=== PATIENT | female | born 1930 | race Caucasian/White ===

== ENCOUNTER 2016-06-11 20:18 | Observation (INO) | payer MEDICARE, BC ==
[~2016-06-11] VITALS: Ht 160 cm; Wt 66.6 kg
[~2016-06-11 20:18] MED LIST: ASA FREE160 MG OR; ASPIRIN325 MG PO; COUMADIN4 MG PO; COUMADIN6 MG PO; EQ ASPIRIN325 M1 OR; FISH OIL1000 MG OR; FISH OIL1000 MG PO; FLUOROMETHOL0.1 % OU; FOSAMAX70 MG OR; GABAPENTIN300 MG PO; IMDUR60 MG OR; ISOSORB MONO30 MG OR; LEVOTHYROXIN100 MCG PO; LEVOTHYROXIN125 MCG OR; LISINOPRIL5 MG PO; LOPRESSOR50 M1 PO; LORTAB 5 OR; LORTAB5 OR; LOSARTAN POTASS50 MG PO; METOPROLOL100 M1 OR; MULTI VIT OR; NEURONTIN300 MG OR; NITROLINGUAL SPRAY D SL; OSCAL 500/1 TAB PO; PERCOCET 5/325M1 TAB PO; PLAVIX75 MG PO; PRAVACHOL20 MG OR; PRAVASTATIN20 MG PO; PRILOSEC20 MG/CAP OR; RELAFEN; STOOL SOFTENER100 MG PO; SYNTHROID100 MCG OR; TOPROL XL25 MG OR; VESICARE10 MG OR; VESICARE5 MG OR; VITAMIN D2000 UNIT PO; ZANTAC150 M1 PO; ZETIA10 MG OR; ZETIA10 MG PO
[2016-06-12 03:23] LABS: HEMATOCRIT 37.9 % (37.0-47.0); HEMOGLOBIN 13.3 g/dl (12.0-16.0); IMMATURE GRANULOCYTES 0.2 % (0.0-1.0); MEAN CELL VOLUME 100.3 fL CALC (80.0-100.0); MEAN CORPUSCULAR HGB 35.2 pG CALC (26.0-32.0); MEAN CORPUSCULAR HGB CONC 35.1 g/L CALC (32.0-36.0); NEUT# 7.66 thou/uL (2.00-7.15); RED BLOOD COUNT 3.78 mill/uL (4.20-5.60); RED CELL DISTRI WIDTH 13.2 % (11.5-15.5)
[2016-06-12 03:39] LABS: ALBUMIN 4.7 g/dL (3.2-5.0); ALKALINE PHOSPHATASE 72 u/l (38-126); ANION GAP 16 (6-22 (CALC)); BUN 13 mg/dL (8-23); BUN/CREATININE RATIO 21 (12-20 (CALC)); CALCIUM 9.3 mg/dL (8.4-10.2); CARBON DIOXIDE 27 mmol/l (22-30); CHLORIDE 102 mmol/l (95-108); CREATININE 0.6 mg/dL (0.5-1.0); GFR > 60 ML/MIN (>=60 (CALC)); GFR FOR AFR.AMER. > 60 ML/MIN (>=60 (CALC)); GLUCOSE 106 mg/dL (82-115); POTASSIUM 3.5 mmol/l (3.5-5.1); SGOT/AST 37 u/l (9-36); SGPT/ALT 30 u/l (11-66); SODIUM 141 mmol/l (137-146); TOTAL PROTEIN 8.5 g/dL (6.3-8.2)
[2016-06-12 03:43] LABS: URINE BILIRUBIN - DIPSTICK NEGATIVE (NEGATIVE); URINE BLOOD DIPSTICK TRACE-LYSED (NEGATIVE); URINE CLARITY CLEAR; URINE COLOR YELLOW; URINE GLUCOSE - DIPSTICK NEGATIVE (NEGATIVE); URINE KETONE TRACE mg/dL (NEGATIVE); URINE LEUK ESTERASE NEGATIVE (NEGATIVE); URINE NITRITE - DIPSTICK NEGATIVE (Negative); URINE PROTEIN - DIPSTICK TRACE mg/dL (NEG-TRACE); URINE UROBILINOGEN - DIPSTICK 0.2 E.U./dL (0.2)
[2016-06-12 03:50] LABS: MYOGLOBIN 94 ng/mL (0 - 62)
[2016-06-12 06:17] LABS: INFLUENZA A NONE DETECTED (NONE DETECT); INFLUENZA B NONE DETECTED (NONE DETECT)
[2016-06-12 07:55] VITALS: BP 107/60
[2016-06-12] MEDS ORDERED: PERCOCET 5/325M1 TAB PO (08:13)
[2016-06-12] MEDS ORDERED: IRON325 M1 PO (08:20)
[2016-06-12] MEDS ORDERED: AMLODIPINE2.5 MG PO (08:21)
[2016-06-12 11:35] VITALS: BP 108/48
[2016-06-12 14:24] LABS: PROTHROMBIN TIME 22.7 SECONDS (9.0-12.5)
[2016-06-12 15:10] VITALS: BP 125/62
[2016-06-12 19:10] VITALS: BP 154/78
[2016-06-12 23:31] VITALS: BP 127/55
[2016-06-13] VITALS (7 sets, daily range): BP systolic 105–138; BP diastolic 54–72
[2016-06-13 05:05] LABS: HEMATOCRIT 36.2 % (37.0-47.0); HEMOGLOBIN 12.6 g/dl (12.0-16.0); IMMATURE GRANULOCYTES 0.2 % (0.0-1.0); MEAN CELL VOLUME 99.7 fL CALC (80.0-100.0); MEAN CORPUSCULAR HGB 34.7 pG CALC (26.0-32.0); MEAN CORPUSCULAR HGB CONC 34.8 g/L CALC (32.0-36.0); NEUT# 4.73 thou/uL (2.00-7.15); RED BLOOD COUNT 3.63 mill/uL (4.20-5.60); RED CELL DISTRI WIDTH 12.8 % (11.5-15.5)
[2016-06-13 05:39] LABS: ANION GAP 16 (6-22 (CALC)); BUN 15 mg/dL (8-23); BUN/CREATININE RATIO 19 (12-20 (CALC)); CALCIUM 9.1 mg/dL (8.4-10.2); CARBON DIOXIDE 28 mmol/l (22-30); CHLORIDE 100 mmol/l (95-108); CREATININE 0.8 mg/dL (0.5-1.0); GFR > 60 ML/MIN (>=60 (CALC)); GFR FOR AFR.AMER. > 60 ML/MIN (>=60 (CALC)); GLUCOSE 91 mg/dL (82-115); POTASSIUM 3.3 mmol/l (3.5-5.1); SODIUM 140 mmol/l (137-146)
[2016-06-13 15:57] LABS: INTERNATIONAL NORMALIZED RATIO 1.5 RATIO (0.7-1.3); PROTHROMBIN TIME 16.8 SECONDS (9.0-12.5)
[2016-06-14 04:00] VITALS: BP 114/70
[2016-06-14 05:59] LABS: HEMATOCRIT 37.1 % (37.0-47.0); HEMOGLOBIN 13.3 g/dl (12.0-16.0); IMMATURE GRANULOCYTES 0.2 % (0.0-1.0); MEAN CELL VOLUME 98.7 fL CALC (80.0-100.0); MEAN CORPUSCULAR HGB 35.4 pG CALC (26.0-32.0); MEAN CORPUSCULAR HGB CONC 35.8 g/L CALC (32.0-36.0); NEUT# 2.89 thou/uL (2.00-7.15); RED BLOOD COUNT 3.76 mill/uL (4.20-5.60); RED CELL DISTRI WIDTH 12.8 % (11.5-15.5)
[2016-06-14 06:07] LABS: INTERNATIONAL NORMALIZED RATIO 1.3 RATIO (0.7-1.3); PROTHROMBIN TIME 14.8 SECONDS (9.0-12.5)
[2016-06-14 06:11] LABS: CALCIUM 9.1 mg/dL (8.4-10.2); CREATININE 1.1 mg/dL (0.5-1.0); POTASSIUM 3.5 mmol/l (3.5-5.1)
[2016-06-14 08:22] VITALS: BP 99/45
[2016-06-14 12:21] VITALS: BP 108/60
[2016-06-14] MEDS ORDERED: ASPIRIN EC81 MG PO (14:19)
[2016-06-14] MEDS ORDERED: LEVAQUIN750 MG PO (14:20)
[2016-06-14] MEDS ORDERED: MEDDOSEPAK PO (14:22)
== END 2016-06-14 16:06 | disposition home or self-care (01) ==
LOC: ENPENDDIS → ED 20:18 → ED-I 06-12 01:44 → ED 06-12 05:57 → MS2 06-12 05:58
PROVIDERS: Emergency Medicine; Internal Medicine; ADMIT Internal Medicine; ATTEND Internal Medicine
DX: J20.9 Acute bronchitis, unspecified (principal); I11.0 Hypertensive heart disease with heart failure; I50.9 Heart failure, unspecified; E78.5 Hyperlipidemia, unspecified; E03.9 Hypothyroidism, unspecified; I48.91 Unspecified atrial fibrillation; I25.10 Atherosclerotic heart disease of native coronary artery without angina pectoris; R07.9 Chest pain, unspecified; R06.02 Shortness of breath; Z87.891 Personal history of nicotine dependence; Z79.01 Long term (current) use of anticoagulants

== ENCOUNTER → 2018-01-10 | Outpatient (REF) | payer MEDICARE, BC ==
[~2018-01-10] MED LIST changes: +AMLODIPINE2.5 MG PO; +ASPIRIN EC81 MG PO; +IRON325 M1 PO; +LEVAQUIN750 MG PO; +MEDDOSEPAK PO
[2018-01-10 09:31] LABS: INTERNATIONAL NORMALIZED RATIO 2.6 RATIO (0.7-1.3); PROTHROMBIN TIME 26.6 SECONDS (9.0-12.5)
== END | disposition home or self-care (01) ==
LOC: LAB 08:19
DX: I48.91 Unspecified atrial fibrillation (principal)

== ENCOUNTER 2018-03-27 16:44 | Emergency (ER) | payer MEDICARE, BC ==
[~2018-03-27] VITALS: Ht 160 cm; Wt 60.0 kg
[2018-03-27] MEDS ORDERED: MUPIROCIN21 TOP (17:59)
[2018-03-27 18:30] VITALS: BP 115/65
== END 2018-03-27 18:30 | disposition home or self-care (01) ==
LOC: ED 16:44
DX: M25.551 Pain in right hip (principal); S81.812A Laceration without foreign body, left lower leg, initial encounter; M19.90 Unspecified osteoarthritis, unspecified site; K21.9 Gastro-esophageal reflux disease without esophagitis; I48.91 Unspecified atrial fibrillation; W19.XXXA Unspecified fall, initial encounter; W22.09XA Striking against other stationary object, initial encounter; Y93.89 Activity, other specified; Z95.2 Presence of prosthetic heart valve; Z95.0 Presence of cardiac pacemaker; Z95.1 Presence of aortocoronary bypass graft; Z95.5 Presence of coronary angioplasty implant and graft

== ENCOUNTER 2018-04-03 10:58 | Emergency (ER) | payer MEDICARE, BC ==
[~2018-04-03] VITALS: Ht 160 cm; Wt 68.0 kg
[~2018-04-03 10:58] MED LIST changes: +MUPIROCIN21 TOP
[2018-04-03] MEDS ORDERED: DOXYCYCL HYC100 MG PO (12:17)
[2018-04-03 12:51] VITALS: BP 158/96
== END 2018-04-03 12:57 | disposition home or self-care (01) ==
LOC: ED 10:58
DX: S80.12XA Contusion of left lower leg, initial encounter (principal); S80.812A Abrasion, left lower leg, initial encounter; W22.09XA Striking against other stationary object, initial encounter; W18.30XA Fall on same level, unspecified, initial encounter; Y92.812 Truck as the place of occurrence of the external cause

== ENCOUNTER 2020-02-27 21:21 | Observation (INO) | payer MEDICARE, BC ==
[~2020-02-27] VITALS: Ht 154.9 cm; Wt 57.1 kg
--- NOTE | 2020-02-27 00:10 | NUR ---
PT SLEEPING, DID NOT AWAKE TO MY ENTERING THE ROOM. ANTIBIOTIC THERAPY ADMINISTERED AT THIS TIME. NO S/O DISTRESS NOTED. CALL LIGHT AT SIDE.
[~2020-02-27 21:21] MED LIST changes: +DOXYCYCL HYC100 MG PO
--- NOTE | 2020-02-27 21:29 | NUR ---
TO ROOM 11 VIA EMS STRETCHER C/O RT. SIDED CHEST PAIN. MD AT BEDSIDE.
--- NOTE | 2020-02-27 23:00 | NUR ---
RECIEVED HAND OFF REPORT FROM TANYA.
[2020-02-27 23:27] LABS: HEMATOCRIT 34.7 % (37.0-47.0); HEMOGLOBIN 11.6 g/dl (12.0-16.0); IMMATURE GRANULOCYTES 0.3 % (0.0-5.0); MEAN CELL VOLUME 104.2 fL CALC (80.0-100.0); MEAN CORPUSCULAR HGB 34.8 pG CALC (26.0-32.0); MEAN CORPUSCULAR HGB CONC 33.4 g/dL CAL (32.0-36.0); NEUT# 6.71 thou/uL (2.00-7.15); RED BLOOD COUNT 3.33 mill/uL (4.20-5.60); RED CELL DISTRI WIDTH 13.2 % (11.5-15.5)
--- NOTE | 2020-02-27 23:30 | NUR ---
PATIENT RESTING QUIETLY, WITH C/O CHEST PAIN WITH RESPIRATIONS, AWAKE AND ALERT, NO S/S OF DISTRESS NOTED, RESPIRATIONS EVEN AND UNLABORED. FAMILY AT BEDSIDE.
[2020-02-27 23:39] LABS: INTERNATIONAL NORMALIZED RATIO 2.4 RATIO (0.7-1.3); PROTHROMBIN TIME 23.2 SECONDS (9.0-12.5)
[2020-02-27 23:40] LABS: ALBUMIN 4.2 g/dL (3.2-5.0); ALKALINE PHOSPHATASE 71 u/l (38-126); AMYLASE 73 u/l (30-110); ANION GAP 12 (6-22 (CALC)); BILIRUBIN, TOTAL 0.5 mg/dL (0.0-1.4); BUN 20 mg/dL (8-23); BUN/CREATININE RATIO 27 (12-20 (CALC)); CARBON DIOXIDE 25 mmol/l (22-30); CHLORIDE 105 mmol/l (95-108); CREATININE 0.7 mg/dL (0.5-1.0); GFR > 60 ML/MIN (>=60 (CALC)); GFR FOR AFR.AMER. > 60 ML/MIN (>=60 (CALC)); POTASSIUM 3.8 mmol/l (3.5-5.1); SGOT/AST 25 u/l (9-36); SODIUM 138 mmol/l (137-146); TOTAL PROTEIN 7.8 g/dL (6.3-8.2)
[2020-02-27 23:51] LABS: MYOGLOBIN 64 ng/mL (0 - 62)
--- NOTE | 2020-02-28 00:15 | NUR ---
PATIENT REPORT RELIEF FROM CHEST PAIN AFTER ADMINISTRATION OF MEDICATION, RESTING QUIETLY, NO C/O PAIN OR DISCOMFORT, NO S/S OF IDSTRESS NOTED. AWAITING DIAGNOSTIC RESULTS.
--- NOTE | 2020-02-28 01:45 | NUR ---
PATIENT RESTING QUIETLY, LIGHTS DIMMED FOR COMFORT, AWAITING INPATIENT BED.
--- NOTE | 2020-02-28 02:45 | NUR ---
PATIENT AWAITING INPATIENT BED PLACEMENT, AWAKE AND ALERT, NO S/S OF DISTRESS, RESPIRATIONS EVEN AND UNLABORED.
--- NOTE | 2020-02-28 04:04 | NUR ---
PATIENT MEDICATED FOR PAIN PER PATIENT REQUEST BY PHYSICIAN ORDER, C/O MID STERNAL CHEST PAIN WHEN TAKING A BREATH, NO S/S OF DISTRESS NOTED, RESPIRATIONS EVEN AND UNLABORED, AWAITING INPATIENT BED.
--- NOTE | 2020-02-28 04:39 | NUR ---
PATIENT RESTING QUIETLY WITH EYES CLOSED, RESIRATIONS EVEN AND UNLABORED, REPORTS MARKED RELIEF OF MID STERNAL CHEST PAIN WITH RESPIRATIOS AFTER MEDICATION, AWAITING INPATIENT BED ASSIGNMENT,.
--- NOTE | 2020-02-28 05:05 | NUR ---
PATIENT MEDICATED FOR PAIN PER PATIENT REQUEST BY MD ORDER, PATIENT C/O 11/10 PAIN TO MID STERNAL AREA WITH RESPIRATIONS, REPORTED RELIEF WITH PREVIOUS MEDICATION BUT STATED THAT THE RELIEF WAS VERY SHORT IN DURATION. NO S/SOF DISTRESS, RESPIRATIONS EVEN AND UNLABORED.
--- NOTE | 2020-02-28 07:14 | NUR ---
HAND OFF REPORT GIVEN TO ADOLFO FOR INPATIENT PATIENT ASSIGNMENT
--- NOTE | 2020-02-28 08:30 | NUR ---
PT TRANSPORTED TO [facility] SURG STABLE AND IN NO DISTRESS. NURSE NOTIFIED OF TRANSPORT AND REASON BEHIND DELAY.
[2020-02-28 08:48] VITALS: BP 127/60
--- NOTE | 2020-02-28 08:48 | NUR ---
PT ARRIVED TO MED/SURG ROOM 281 IN STABLE CONDITION VIA STRETCHER ACCOMPANIED BY SARARN;PT TRANSPORTED TO BEDSIDE WITH X2 ASSIST;PT A&O X3, ORIENTED TO ROOM AND CALL LIGHT SYSTEM;PT REPORTS MIDSTERNAL CP WITH INSPIRATION;PT REPORTS MINIMAL CP AT THIS TIME, REPORTING THAT IT HAS INMPROVED SINCE ADMIT;RESPIRATIONS EVEN AND UNLABORED ON O2 @ 2L VIA NC, PT IS NOT HOME O2 DEPENDENT;PT RECENTLY DX WITH LUNG CANCER AND IS RECEIVING RADIATION THERAPY;PT REPORTS PRODUCTIVE COUGH AT TIMES LERNER AND THICK, NO SPUTUM VISUALIZED BY WRITTER;ABDOMEN SOFT ON PALPATION AND ACTIVE IN ALL 4 QUADRANTS,LAST BM 02/27/20;WEAK PEDAL PULSES;SKIN INTACT;TELE MONITORING IN PLACE;EMS #20G TO LAC INFUSING NS @ 125ML/HR,SITE APPEARS HEALTHY;FALL AND ALLERGY BAND APPLIED;PT IN AIR/CONTACT PRECAUTIONS DUE TO RECENT EXPOSURE TO COVID19;PT DENIES ANY ADDITIONAL NEEDS AT THIS TIME AND IS ENCOURAGED TO CALL FOR ASSISTANCE IF NEEDED;FALL PRECAUTIONS IN PLACE WITH BED IN THE LOWEST POSITION AND CALL LIGHT IN REACH;WILL CONTINUE TO MONITOR
--- NOTE | 2020-02-28 10:30 | NUR ---
PT RESTING IN SEMI FOWLERS POSITION;RESPIRATIONS REMAIN EVEN AND UNLABORED ON O2 @ 2L VIA NC;PT DENIES ANY CURRENT NEEDS AT THIS TIME AND IS ENCOURAGED TO CALL FOR ASSISTANCE IF NEEDED;CALL LIGHT IN REACH;WILL CONTINUE TO MONITOR
[2020-02-28] MEDS ORDERED: SINEMET 25/1001 TA2 PO (10:37)
[2020-02-28] MEDS ORDERED: OSCAL 500/1 TAB PO (10:38)
[2020-02-28] MEDS ORDERED: WARFARIN5 MG PO (10:38)
[2020-02-28] MEDS ORDERED: METOPROLOL SUCC50 MG PO (10:42)
[2020-02-28] MEDS ORDERED: STOOL SOFTNR PO (10:45)
[2020-02-28] MEDS ORDERED: SYNTHROID112 MCG PO (10:47)
[2020-02-28] MEDS ORDERED: D32000 UNIT PO (10:48)
[2020-02-28] MEDS ORDERED: LOSARTAN POTAS100 MG PO (10:49)
[2020-02-28] MEDS ORDERED: NORVASC5 M1 PO (10:50)
[2020-02-28] MEDS ORDERED: GABAPENTIN400 M2 PO (10:54)
[2020-02-28 11:05] VITALS: BP 131/52
[2020-02-28] MEDS ORDERED: ASPIRIN/ENTERIC81 MG PO (11:07)
--- NOTE | 2020-02-28 11:14 | NUR ---
PT EVALUATION RECOMMENDED.
--- NOTE | 2020-02-28 12:15 | NUR ---
PT RESTING IN SEMI FOWLERS POSITION EATING LUNCH;RESPIRATIONS REMAIN EVEN AND UNLABORED ON O2 @ 2L VIA NC;PT DENIES ANY CURRENT PAIN OR NEEDS;TELE MONITORING IN PLACE;IV FLUIDS INFUSING WITH EASE PER ORDER AND ABX STARTED AT THIS TIME;ASSESSMENT REMAINS UNCHANGED;PT ENCOURAGED TO CALL FOR ASSISTANCE IF NEEDED;FALL PRECAUTIONS IN PLACE WITH BED IN THE LOWEST POSITION AND CALL LIGHT IN REACH;WILL CONTINUE TO MONITOR
--- NOTE | 2020-02-28 13:50 | NUR ---
O.T. SCREENED PT. WHO MAY BENEFIT FROM P.T. AND O.T. EVAL WHEN MEDICALLY STABLE.
--- NOTE | 2020-02-28 14:20 | NUR ---
PT TRANSPORTED TO RADIOLOGY IN STABLE CONDITION VIA WHEELCHAIR ACCOMPANIED BY VALERIANO GARCIA.
--- NOTE | 2020-02-28 14:42 | NUR ---
PT RETURNED TO MED/SURG ROOM 281 IN STABLE CONDITION VIA WHEELCHAIR ACCOMPANIED BY VALERIANO GARCIA.
--- NOTE | 2020-02-28 14:50 | NUR ---
LAB AT BEDSIDE
--- NOTE | 2020-02-28 15:30 | NUR ---
PT RESTING IN SEMI FOWLERS POSITION;RESPIRATIONS EVEN AND UNLABORED ON O2 @ 2L VIA NC;PT DENIES ANY CURRENT PAIN OR DISCOMFORTS;TELE MONITORING IN PLACE;IV SITE PATENT INFUSING NS PER ORDER;PT DENIES ANY ADDITIONAL NEEDS AND IS ENCOURAGED TO CALL FOR ASSISTANCE IF NEEDED;CALL LIGHT IN REACH;WILL CONTINUE TO MONITOR
[2020-02-28 15:49] VITALS: BP 150/59
--- NOTE | 2020-02-28 19:38 | NUR ---
PT RESTING IN BED, NO SIGNS OF DISTRESS NOTED, RESP EVEN AND UNLABORED. PT ALERT AND ORIENTED X3, DISCUSSED POC. MEDICATED PER MAR. PT VOICES NO NEEDS OR COMPLAINTS AT THIS TIME. ASSESSMENT COMPLETED, CALL LIGHT IN REACH,CONTINUE TO MONITOR.
[2020-02-28 19:40] VITALS: BP 124/48
[2020-02-29] VITALS: BP 132/49
[2020-02-29 03:30] VITALS: BP 162/75
--- NOTE | 2020-02-29 04:12 | NUR ---
PT C/O FEELING SOB. O2 SAT 95% ON 2LNC LUNG SOUNDS CLEAR/DIM THROUGHOUT, TALKED WITH PT ABOUT SLOWING HER BREATHING AND ASSISTED WITH RELAXATION TECHNIQUES. PT IS STILL FEELING ANXIOUS. RESP CALLED TO ASSESS PT.
[2020-02-29 05:33] LABS: HEMATOCRIT 35.8 % (37.0-47.0); HEMOGLOBIN 11.9 g/dl (12.0-16.0); IMMATURE GRANULOCYTES 0.5 % (0.0-5.0); MEAN CELL VOLUME 103.2 fL CALC (80.0-100.0); MEAN CORPUSCULAR HGB 34.3 pG CALC (26.0-32.0); MEAN CORPUSCULAR HGB CONC 33.2 g/dL CAL (32.0-36.0); NEUT# 5.58 thou/uL (2.00-7.15); RED BLOOD COUNT 3.47 mill/uL (4.20-5.60); RED CELL DISTRI WIDTH 13.1 % (11.5-15.5)
[2020-02-29 05:49] LABS: ALBUMIN 3.7 g/dL (3.2-5.0); ALKALINE PHOSPHATASE 90 u/l (38-126); ANION GAP 11 (6-22 (CALC)); BUN 10 mg/dL (8-23); BUN/CREATININE RATIO 16 (12-20 (CALC)); CARBON DIOXIDE 27 mmol/l (22-30); CHLORIDE 102 mmol/l (95-108); CREATININE 0.6 mg/dL (0.5-1.0); GFR > 60 ML/MIN (>=60 (CALC)); GFR FOR AFR.AMER. > 60 ML/MIN (>=60 (CALC)); MAGNESIUM 1.8 mg/dL (1.6-2.3); POTASSIUM 3.6 mmol/l (3.5-5.1); SODIUM 137 mmol/l (137-146); TOTAL PROTEIN 7.1 g/dL (6.3-8.2)
[2020-02-29 05:54] LABS: BILIRUBIN, TOTAL 1.4 mg/dL (0.0-1.4); SGOT/AST 48 u/l (9-36)
[2020-02-29 06:02] LABS: INTERNATIONAL NORMALIZED RATIO 2.9 RATIO (0.7-1.3); PROTHROMBIN TIME 27.5 SECONDS (9.0-12.5)
[2020-02-29 07:44] VITALS: BP 141/65
--- NOTE | 2020-02-29 07:46 | NUR ---
Patient resting in bed, alert and oriented, no c/o pain or distress noted. Vital signs stable, no c/o of sob, IV fluids running via IV #20G LAC.
[2020-02-29 10:45] VITALS: BP 138/57
--- NOTE | 2020-02-29 13:49 | NUR ---
NOTIFIED COSTUMER OF PT/INR RESULTS, OK TO CONTINUE CURRENT DOSE OF COUMADIN.
[2020-02-29 14:55] VITALS: BP 145/57
[2020-02-29 19:30] VITALS: BP 148/56
--- NOTE | 2020-02-29 20:00 | NUR ---
Pt resting in bed, nurse and DIRECTOR OF FRONT OFFICE changed pt and linen.
[2020-03-01] VITALS (7 sets, daily range): BP systolic 111–143; BP diastolic 46–71
--- NOTE | 2020-03-01 | NUR ---
Pt sleeping comfortably.
--- NOTE | 2020-03-01 02:05 | NUR ---
Pt called nurse, upon arrival pt was holding her nose. Pt's nose was bleeding within nostrils, nurse assessed inside pt's nose and it was bleeding close to the entry. It seems that the Nasal cannula jabbed her nostril which made it bleed. Nurse assisted Pt with cleaning her nose and bleeding stopped, loosened the nasal cannula so it was not pressing against her nostrils.
--- NOTE | 2020-03-01 04:00 | NUR ---
Pt sleeping comfortably without S/S of distress.
--- NOTE | 2020-03-01 08:15 | NUR ---
PT oob IN CHAIR DENIES sob OR cp REMAINS AFERILE vss 2L NC FOR SATS OF 90%.
[2020-03-01 10:43] LABS: PROTHROMBIN TIME 28.5 SECONDS (9.0-12.5)
--- NOTE | 2020-03-01 13:00 | NUR ---
PT RESTING IN BED WITHOUT COMPLAINTS DENIES SOB OR CHEEST PAIN OES NOT VERBALIZE ANY NEEDS WHEN ASKED O2 SATS REMAIN UNCHANGED nO COUGH NOTED
--- NOTE | 2020-03-01 16:27 | NUR ---
PT RESTING IN BED QUIETLY DENIES CP OR SOB DENIES PAIN
--- NOTE | 2020-03-01 20:00 | NUR ---
Pt was sleeping upon entry to room. She was easy to arrouse and medications taken without dificulty. Offer to replenish water, was declined. Call light within reach and bed in lowest position.
--- NOTE | 2020-03-02 00:25 | NUR ---
Pt resting in bed watching tv. Does not express discomfort, call light within reach.
--- NOTE | 2020-03-02 03:25 | NUR ---
Pt sleeping without S/S of discomfort and no complaints of SOB.
[2020-03-02 04:45] VITALS: BP 141/62
[2020-03-02 05:22] LABS: HEMATOCRIT 32.6 % (37.0-47.0); HEMOGLOBIN 11.3 g/dl (12.0-16.0); IMMATURE GRANULOCYTES 0.2 % (0.0-5.0); MEAN CELL VOLUME 100.3 fL CALC (80.0-100.0); MEAN CORPUSCULAR HGB 34.8 pG CALC (26.0-32.0); MEAN CORPUSCULAR HGB CONC 34.7 g/dL CAL (32.0-36.0); NEUT# 3.02 thou/uL (2.00-7.15); RED BLOOD COUNT 3.25 mill/uL (4.20-5.60); RED CELL DISTRI WIDTH 12.8 % (11.5-15.5)
[2020-03-02 05:28] LABS: ALBUMIN 3.2 g/dL (3.2-5.0); ALKALINE PHOSPHATASE 70 u/l (38-126); ANION GAP 10 (6-22 (CALC)); BUN 10 mg/dL (8-23); BUN/CREATININE RATIO 14 (12-20 (CALC)); CARBON DIOXIDE 27 mmol/l (22-30); CHLORIDE 105 mmol/l (95-108); CREATININE 0.7 mg/dL (0.5-1.0); GFR > 60 ML/MIN (>=60 (CALC)); GFR FOR AFR.AMER. > 60 ML/MIN (>=60 (CALC)); POTASSIUM 3.2 mmol/l (3.5-5.1); SGOT/AST 27 u/l (9-36); SODIUM 138 mmol/l (137-146); TOTAL PROTEIN 6.5 g/dL (6.3-8.2)
[2020-03-02 05:35] LABS: BILIRUBIN, TOTAL 0.7 mg/dL (0.0-1.4)
[2020-03-02 05:38] LABS: INTERNATIONAL NORMALIZED RATIO 3.1 RATIO (0.7-1.3); PROTHROMBIN TIME 29.1 SECONDS (9.0-12.5)
[2020-03-02 08:00] VITALS: BP 145/64
[2020-03-02 08:35] VITALS: BP 145/64
--- NOTE | 2020-03-02 09:00 | NUR ---
PT SEEN AWAKE, ALERT, ORIENTED X 3. LUNGS CLEAR, LIGHTLY DIMINISHED THROUGHOUT, ROOM AIR. NO CHEST PAIN, NO SHORTNESS OF BREATH.
[2020-03-02] MEDS ORDERED: ZITHROMAX250 MG PO (10:40)
[2020-03-02] MEDS ORDERED: AMOX/K CLAV875 M1 PO (10:40)
--- NOTE | 2020-03-02 11:45 | NUR ---
PT HAS BEEN DISCHARGED TO HOME. PT VERBALIZES UNDERSTANDING OF DC INSTRUCTIONS, TAKEN BY WHEELCHAIR TO LOBBY. PT LEAVES [facility] IN STABLE CONDITION.
== END 2020-03-02 11:45 | disposition home health service (06) ==
LOC: ED 21:21 → ED-I 02-28 01:23 → ED 02-28 02:35 → ED-I 02-28 02:36 → MS2 02-28 07:15
PROVIDERS: Emergency Medicine; Nurse Practitioner; ADMIT Internal Medicine; ATTEND Internal Medicine
DX: R07.9 Chest pain, unspecified (principal); J18.9 Pneumonia, unspecified organism; C34.12 Malignant neoplasm of upper lobe, left bronchus or lung; I11.0 Hypertensive heart disease with heart failure; I50.9 Heart failure, unspecified; E78.5 Hyperlipidemia, unspecified; I25.10 Atherosclerotic heart disease of native coronary artery without angina pectoris; E03.9 Hypothyroidism, unspecified; I48.91 Unspecified atrial fibrillation; K21.9 Gastro-esophageal reflux disease without esophagitis; Z95.1 Presence of aortocoronary bypass graft; Z95.5 Presence of coronary angioplasty implant and graft; Z95.3 Presence of xenogenic heart valve; Z95.0 Presence of cardiac pacemaker; Z87.01 Personal history of pneumonia (recurrent); Z79.01 Long term (current) use of anticoagulants; Z20.828 Contact with and (suspected) exposure to other viral communicable diseases
CPT/HCPCS: Q9967

== ENCOUNTER 2020-07-02 11:50 | Observation (INO) | payer MEDICARE, BC ==
[~2020-07-02] VITALS: Ht 154.9 cm; Wt 65.0 kg
[~2020-07-02 11:50] MED LIST changes: +AMOX/K CLAV875 M1 PO; +ASPIRIN/ENTERIC81 MG PO; +D32000 UNIT PO; +GABAPENTIN400 M2 PO; +LOSARTAN POTAS100 MG PO; +METOPROLOL SUCC50 MG PO; +NORVASC5 M1 PO; +SINEMET 25/1001 TA2 PO; +STOOL SOFTNR PO; +SYNTHROID112 MCG PO; +WARFARIN5 MG PO; +ZITHROMAX250 MG PO
--- NOTE | 2020-07-02 11:50 | NUR ---
PT TO ROOM # 12 VIA EMS STRETCHER.
--- NOTE | 2020-07-02 12:25 | NUR ---
PT TO RADIOLOGY VIA STRETCHER IN STABLE CONDITION.
[2020-07-02 12:33] LABS: HEMOGLOBIN 12.1 g/dl (12.0-16.0); IMMATURE GRANULOCYTES 0.2 % (0.0-5.0); MEAN CELL VOLUME 104.5 fL CALC (80.0-100.0); MEAN CORPUSCULAR HGB 32.3 pG CALC (26.0-32.0); MEAN CORPUSCULAR HGB CONC 30.9 g/dL CAL (32.0-36.0); NEUT# 3.21 thou/uL (2.00-7.15); RED BLOOD COUNT 3.75 mill/uL (4.20-5.60); RED CELL DISTRI WIDTH 14.8 % (11.5-15.5)
[2020-07-02 12:34] LABS: HEMATOCRIT 39.2 % (37.0-47.0)
[2020-07-02 12:45] LABS: INTERNATIONAL NORMALIZED RATIO 2.9 RATIO (0.7-1.3); PROTHROMBIN TIME 29.3 SECONDS (9.0-12.5)
--- NOTE | 2020-07-02 12:47 | NUR ---
PT RETURNS FROM RADIOLOGY IN STABLE CONDITION. PLACED ON MONITOR. ADVISED PT AND DAUGHTER OF WAIT TIME FOR RESULTS. VERBALIZED UNDERSTANDING. DENIES ANY NEEDS. CALL LIGHT WITHIN REACH.
--- NOTE | 2020-07-02 13:00 | NUR ---
PT RESTING ON STRETCHER IN NAD. RESP EVEN AND UNLABORED. SKIN WARM AND DRY. DISCUSSED WITH PT AND DAUGHTER OF CONT WAIT TIME FOR RESULTS. VERBALIZED UNDERSTANDING. DENIES ANY NEEDS. MONITOR IN PLACE. CALL LIGHT WITHIN REACH.
[2020-07-02 13:42] LABS: BILIRUBIN, TOTAL 0.6 mg/dL (0.0-1.4); CREATININE 1.2 mg/dL (0.5-1.0)
[2020-07-02 13:53] LABS: ALBUMIN 4.2 g/dL (3.2-5.0); POTASSIUM 4.9 mmol/l (3.5-5.1); TOTAL PROTEIN 8.3 g/dL (6.3-8.2)
--- NOTE | 2020-07-02 14:00 | NUR ---
PT RESTING ON STRETCHER IN NO APPARENT DISTRESS. RESP EVEN AND UNLABORED. SKIN WARM AND DRY. VERBALIZES NO NEEDS AT THIS TIME. CALL LIGHT WITHIN REACH.
[2020-07-02] MEDS ORDERED: [UNRECOGNIZED DRUG - OTHER] PO (14:04)
[2020-07-02] MEDS ORDERED: ADVAIR DISK1 INH (14:05)
[2020-07-02] MEDS ORDERED: CARB/LEVO1 TA4 PO (14:06)
[2020-07-02] MEDS ORDERED: FAMOTIDINE20 M1 PO (14:07)
[2020-07-02] MEDS ORDERED: B121000 MCG PO (14:08)
[2020-07-02] MEDS ORDERED: OSCAL 500/1 TAB PO (14:09)
[2020-07-02] MEDS ORDERED: HYDROXYCHLOR PO (14:09)
[2020-07-02] MEDS ORDERED: MECLIZINE25 MG PO (14:10)
[2020-07-02] MEDS ORDERED: STOOL SOFTENER100 M1 PO (14:13)
[2020-07-02] MEDS ORDERED: FUROSEMIDE20 MG PO (14:16)
[2020-07-02] MEDS ORDERED: K-TAB20 MEQ PO (14:16)
--- NOTE | 2020-07-02 14:45 | NUR ---
PT RESTING ON STRETCHER IN NO APPARENT DISTRESS. RESP EVEN AND UNLABORED. SKIN WARM AND DRY. VERBALIZES NO NEEDS AT THIS TIME. CALL LIGHT WITHIN REACH. DAUGHTER BEDSIDE.
--- NOTE | 2020-07-02 15:11 | NUR ---
JAELYN KESSLER BEDSIDE SPEAKING WITH PT.
--- NOTE | 2020-07-02 15:46 | NUR ---
SBAR PRINTED TO FLOOR
[2020-07-02] MEDS ORDERED: LOPRESSOR50 M2 PO (16:19)
[2020-07-02] MEDS ORDERED: NEURONTIN300 MG PO (16:19)
[2020-07-02] MEDS ORDERED: CARB/LEVO SR PO (16:21)
[2020-07-02] MEDS ORDERED: LEVOTHYROXIN112 MC1 PO (16:22)
--- NOTE | 2020-07-02 16:23 | NUR ---
GAVE REPORT TO JUANA
[2020-07-02] MEDS ORDERED: COZAAR25 MG PO (16:24)
[2020-07-02] MEDS ORDERED: WARFARIN SODIU2.5 M1 PO (16:24)
[2020-07-02] MEDS ORDERED: TRAMADOL HYDROC50 M1 PO (16:25)
--- NOTE | 2020-07-02 16:25 | NUR ---
PT ARRIVED VIA STRETCHER WITH STAFF. IV AND TELE MONITOR IN PLACE.
[2020-07-02] MEDS ORDERED: BUTRANS5 MCG/HR TD (16:26)
[2020-07-02 16:29] VITALS: BP 163/91
--- NOTE | 2020-07-02 16:29 | NUR ---
Admission Note Report Given to: SBAR PRINTED TO FLOOR Transported by: Wheelchair X Stretcher Transported with: X Nurse Transporter X Patent IV O2 X Athletic Shoe Designer Location: ICU X MS2
[2020-07-02] MEDS ORDERED: PRAVACHOL40 MG PO (16:32)
--- NOTE | 2020-07-02 16:32 | NUR ---
ASSESSMENT IS COMPLETED: IV SITE IS FREE FROM REDNESS OR EDEMA. HR IS REG,PULSES ARE STRONG X4, ABD IS SOFT WITH ACTIVE BS. BREATH SOUNDS ARE CLEAR BILATERALLY, BRUISING NOTED. AND ABRASIONS ON ARMS. GOOSE HEAD ON FOREHEAD. TELE MONITOR IN PLACE. CONTINUE TO OSBERVE AND MONITOR.
[2020-07-02] MEDS ORDERED: COLACE100 MG PO (16:33)
[2020-07-02] MEDS ORDERED: ADVAIR DISK1 PO (16:34)
--- NOTE | 2020-07-02 16:36 | NUR ---
PT TRANSPORTED TO [facility] SURG STABLE AND IN NO DISTRESS. CARE ASSUMED TO JUANA Admission Note Report Given to: JUANA Transported by: Wheelchair X Stretcher Transported with: X Nurse Transporter X Patent IV X O2 X Signal Tower Operator Location: ICU X MS2
[2020-07-02 19:00] VITALS: BP 113/66
--- NOTE | 2020-07-02 19:45 | NUR ---
PT IS SLEEPING, NO S/O DISTRESS NOTED.
--- NOTE | 2020-07-02 21:35 | NUR ---
ROOM WAS DARK AND PT SLEEPING UPON ENTERING THE ROOM. PT APPEARED VERY GROGGY AND SLOW TO AWAKE. ONCE THE BRIGHT LIGHTS WERE TURNED ON AND I PROCEEDED WITH MY ASSESSMENT SHE BEGAN TO COMMUNICATE APPROPRIATELY, NEURO'S APPEAR TO BE INTACT. PUPILS ARE EQUAL AND REACTIVE, SPEECH IS CLEAR, HALF BACKER ARE EQUAL, PT DENIES N/V/PAIN. HOUSEKEEPING SUPERVISOR HOTEL AND PRIVATE INQUIRY AGENT TRIED TO ASSIST THE PT TO THE C, BUT SHE WAS VERY WEAK AND UNABLE TO HOLD HER OWN WEIGHT, BECAME VERY UNSTEADY SO WAS ASSISTED BACK TO THE BED WHERE A PUREWICK WAS PLACED TO OBTAIN URINE SAMPLE. PT BRIEF WAS REMOVED PRIOR TO PUREWICK PLACEMENT, BRIEF WHICH APPEARED TO BE ORIGINAL BRIEF FROM HOME WAS NOTED TO BE DRY. WILL BLADDER SCAN FOR PRECAUTIONARY.
--- NOTE | 2020-07-02 21:55 | NUR ---
BLADDER SCANNED PT SHOWING 697MLS. ABD FEELS DISTENDED. PT DENIES PRESSURE OR PAIN. PHYSICIAN NOTIFIED AND ORDERS RECIEVED.
--- NOTE | 2020-07-02 22:15 | NUR ---
DISCUSSED PLACING FAIRCHILD CATHETER WITH PT, SHE STATED "WELL I HAVEN'T BEEN DRINKING." I HELPED HER DRINK HER WATER THAT WAS ON THE BST NEXT TO HER, PUREWICK IS IN PLACE FOR UA COLLECTION. WATER RUNNING TO SINK TO ENCOURAGE BLADDER, 200CC OUTPUT OF DARK YELLOW CLEAR URINE SO FAR AT THIS TIME. URINE COLLECTED AND SENT TO THE LAB. WILL CONTINUE TO MONITOR FOR UA OUTPUT THROUGHOUT THE NIGHT.
[2020-07-02 23:05] LABS: URINE BILIRUBIN - DIPSTICK NEGATIVE (NEGATIVE); URINE BLOOD DIPSTICK NEGATIVE (NEGATIVE); URINE COLOR YELLOW; URINE GLUCOSE - DIPSTICK NEGATIVE (NEGATIVE); URINE KETONE NEGATIVE (NEGATIVE); URINE LEUK ESTERASE NEGATIVE (NEGATIVE); URINE NITRITE - DIPSTICK NEGATIVE (Negative); URINE PH 6.5 (4.5-8.0); URINE PROTEIN - DIPSTICK NEGATIVE (NEG-TRACE); URINE SPECIFIC GRAVITY 1.025; URINE UROBILINOGEN - DIPSTICK 0.2 E.U./dL (0.2)
[2020-07-03 00:05] VITALS: BP 112/64
--- NOTE | 2020-07-03 02:00 | NUR ---
PT AWOKE TO MY ENTERING THE ROOM, SHE WAS CHECKED FOR URINARY OUTPUT, BLADDER SCANNED WITH RETENTION OF 604MLS. DISCUSSED WITH PT, SHE AGREED TO FAIRCHILD CATHETER PLACEMENT, 16FR FAIRCHILD CATHETER PLACED AT THIS TIME, PT TOLERATED WELL. 540MLS OUTPUT OF DARK YELLOW URINE IMMEDIATELY. STRAP SECURED TO LUE, PT REPOSITIONED IN THE BED FOR COMFORT, LIGHTS TURNED DOWN, CALL LIGHT W/IN REACH AND BED ALARM RETURNED ON.
--- NOTE | 2020-07-03 03:43 | NUR ---
PT SLEEPING, NO S/O DISTRESS NOTED. CALL LIGHT IS W/IN REACH.
[2020-07-03 04:20] VITALS: BP 129/70
[2020-07-03 07:03] LABS: HEMOGLOBIN 10.7 g/dl (12.0-16.0); MEAN CELL VOLUME 102.4 fL CALC (80.0-100.0); MEAN CORPUSCULAR HGB 32.2 pG CALC (26.0-32.0); MEAN CORPUSCULAR HGB CONC 31.5 g/dL CAL (32.0-36.0); RED BLOOD COUNT 3.32 mill/uL (4.20-5.60); RED CELL DISTRI WIDTH 14.7 % (11.5-15.5)
[2020-07-03 07:29] LABS: CREATININE 1.2 mg/dL (0.5-1.0); POTASSIUM 4.9 mmol/l (3.5-5.1)
[2020-07-03 07:34] LABS: INTERNATIONAL NORMALIZED RATIO 3.2 RATIO (0.7-1.3); PROTHROMBIN TIME 32.2 SECONDS (9.0-12.5)
--- NOTE | 2020-07-03 07:40 | NUR ---
ASSESSMENT IS COMPLETED: IV SITE IS FREE FROM REDNESS OR EDEMA. HR IS REG,PULSES ARE STRONG X4, ABD IS SOFT WITH ACTIVE BS. BREATH SOUNDS ARE CLEAR,BILATERALLY. FAIRCHILD DRAINING YELLOW URINE. TELE MONITOR IN PLACE. CONTINUE TO OSBERVE AND MONITOR.
[2020-07-03 07:50] VITALS: BP 101/61
[2020-07-03 10:03] LABS: CHOLESTEROL HDL RATIO 3.8 (<4.4 (CALC))
[2020-07-03 10:24] VITALS: BP 114/65
--- NOTE | 2020-07-03 12:00 | NUR ---
IV SITE DISCONTINUED CATHETETR INTACT., NO REDNESS OR EDEMA.
--- NOTE | 2020-07-03 12:58 | NUR ---
GAVE DISCHARGE INSTRUCTIONS TO FAMILY AND VERBALIZED UNDERSTANDING.
--- NOTE | 2020-07-03 13:23 | NUR ---
Discharge instructions given. Patient verbalizes understanding of same. Discharged in stable condition via Wheelchair to Home with family. All belongings sent with pt.
== END 2020-07-03 12:50 | disposition home health service (06) ==
LOC: ED 11:50 → ED-I 14:06 → ED 15:24 → MS2 15:25
PROVIDERS: Emergency Medicine; Nurse Practitioner; ADMIT Internal Medicine; ATTEND Internal Medicine
PROC: 0T9B70Z Drainage of Bladder with Drainage Device, Via Natural or Artificial Opening (ICD-10-PCS; principal; 2020-07-03)
DX: S00.83XA Contusion of other part of head, initial encounter (principal); S51.812A Laceration without foreign body of left forearm, initial encounter; S80.212A Abrasion, left knee, initial encounter; S80.211A Abrasion, right knee, initial encounter; N17.9 Acute kidney failure, unspecified; E87.2 Acidosis; I11.0 Hypertensive heart disease with heart failure; I50.9 Heart failure, unspecified; I25.10 Atherosclerotic heart disease of native coronary artery without angina pectoris; E03.9 Hypothyroidism, unspecified; E78.5 Hyperlipidemia, unspecified; K21.9 Gastro-esophageal reflux disease without esophagitis; I48.91 Unspecified atrial fibrillation; M17.0 Bilateral primary osteoarthritis of knee; W01.0XXA Fall on same level from slipping, tripping and stumbling without subsequent striking against object, initial encounter; Y92.002 Bathroom of unspecified non-institutional (private) residence as the place of occurrence of the external cause; Z95.1 Presence of aortocoronary bypass graft; Z95.5 Presence of coronary angioplasty implant and graft; Z95.0 Presence of cardiac pacemaker; Z95.3 Presence of xenogenic heart valve; Z79.01 Long term (current) use of anticoagulants; Z91.81 History of falling; Z85.118 Personal history of other malignant neoplasm of bronchus and lung; Z87.891 Personal history of nicotine dependence; Z20.822 Contact with and (suspected) exposure to COVID-19
CPT/HCPCS: G0378

== ENCOUNTER 2020-09-10 21:55 | Emergency (ER) | payer MEDICARE, BC ==
[~2020-09-10] VITALS: Ht 160 cm; Wt 60.5 kg
[~2020-09-10 21:55] MED LIST changes: +ADVAIR DISK1 INH; +ADVAIR DISK1 PO; +B121000 MCG PO; +BUTRANS5 MCG/HR TD; +CARB/LEVO SR PO; +CARB/LEVO1 TA4 PO; +COLACE100 MG PO; +COZAAR25 MG PO; +FAMOTIDINE20 M1 PO; +FUROSEMIDE20 MG PO; +HYDROXYCHLOR PO; +K-TAB20 MEQ PO; +LEVOTHYROXIN112 MC1 PO; +LOPRESSOR50 M2 PO; +MECLIZINE25 MG PO; +NEURONTIN300 MG PO; +PRAVACHOL40 MG PO; +STOOL SOFTENER100 M1 PO; +TRAMADOL HYDROC50 M1 PO; +WARFARIN SODIU2.5 M1 PO; +[UNRECOGNIZED DRUG - OTHER] PO
[2020-09-10 23:06] LABS: HEMATOCRIT 38.8 % (37.0-47.0); IMMATURE GRANULOCYTES 0.2 % (0.0-5.0); MEAN CELL VOLUME 99.7 fL CALC (80.0-100.0); MEAN CORPUSCULAR HGB 30.8 pG CALC (26.0-32.0); MEAN CORPUSCULAR HGB CONC 30.9 g/dL CAL (32.0-36.0); NEUT# 2.49 thou/uL (2.00-7.15); RED BLOOD COUNT 3.89 mill/uL (4.20-5.60); RED CELL DISTRI WIDTH 16.6 % (11.5-15.5)
[2020-09-10] MEDS ORDERED: WARFARIN7.5 MG PO (23:13)
[2020-09-10] MEDS ORDERED: PROTONIX40 M2 PO (23:21)
[2020-09-10] MEDS ORDERED: VITAMIN B121000 MCG PO (23:23)
[2020-09-10] MEDS ORDERED: VITAMIN D2000 UNIT PO (23:24)
[2020-09-10 23:32] LABS: ALKALINE PHOSPHATASE 100 u/l (38-126); AMYLASE 61 u/l (30-110); ANION GAP 10 (6-22 (CALC)); BILIRUBIN, TOTAL 0.9 mg/dL (0.0-1.4); BUN 12 mg/dL (8-23); BUN/CREATININE RATIO 15 (12-20 (CALC)); CARBON DIOXIDE 31 mmol/l (22-30); CHLORIDE 97 mmol/l (95-108); CREATININE 0.8 mg/dL (0.5-1.0); GFR > 60 ML/MIN (>=60 (CALC)); GFR FOR AFR.AMER. > 60 ML/MIN (>=60 (CALC)); LIPASE 76 u/l (23-300); POTASSIUM 3.9 mmol/l (3.5-5.1); SGOT/AST 30 u/l (9-36); SODIUM 134 mmol/l (137-146); TOTAL PROTEIN 8.6 g/dL (6.3-8.2)
[2020-09-11 00:03] LABS: INTERNATIONAL NORMALIZED RATIO 3.2 RATIO (0.7-1.3); PROTHROMBIN TIME 32.6 SECONDS (9.0-12.5)
[2020-09-11] MEDS ORDERED: Levaquin PO (02:12)
[2020-09-11 02:30] VITALS: BP 170/69
== END 2020-09-11 03:00 | disposition home or self-care (01) ==
LOC: ED 21:55
PROVIDERS: Emergency Medicine
DX: R93.89 Abnormal findings on diagnostic imaging of other specified body structures (principal); R93.7 Abnormal findings on diagnostic imaging of other parts of musculoskeletal system; C34.90 Malignant neoplasm of unspecified part of unspecified bronchus or lung; K21.9 Gastro-esophageal reflux disease without esophagitis; I48.91 Unspecified atrial fibrillation; M54.9 Dorsalgia, unspecified; G89.29 Other chronic pain; Z95.1 Presence of aortocoronary bypass graft; Z95.5 Presence of coronary angioplasty implant and graft; Z95.0 Presence of cardiac pacemaker; Z95.3 Presence of xenogenic heart valve; Z92.21 Personal history of antineoplastic chemotherapy; Z92.3 Personal history of irradiation
CPT/HCPCS: Q9967

== ENCOUNTER 2020-10-20 09:11 | Emergency (ER) | payer MEDICARE, BC ==
[~2020-10-20] VITALS: Ht 160 cm; Wt 61.8 kg
[~2020-10-20 09:11] MED LIST changes: +Levaquin PO; +PROTONIX40 M2 PO; +VITAMIN B121000 MCG PO; +WARFARIN7.5 MG PO
[2020-10-20 09:42] LABS: HEMATOCRIT 33.8 % (37.0-47.0); HEMOGLOBIN 10.9 g/dl (12.0-16.0); IMMATURE GRANULOCYTES 0.2 % (0.0-5.0); MEAN CELL VOLUME 101.2 fL CALC (80.0-100.0); MEAN CORPUSCULAR HGB 32.6 pG CALC (26.0-32.0); MEAN CORPUSCULAR HGB CONC 32.2 g/dL CAL (32.0-36.0); NEUT# 3.57 thou/uL (2.00-7.15); RED BLOOD COUNT 3.34 mill/uL (4.20-5.60); RED CELL DISTRI WIDTH 18.4 % (11.5-15.5)
[2020-10-20 09:57] LABS: ALBUMIN 3.9 g/dL (3.2-5.0); BILIRUBIN, TOTAL 0.9 mg/dL (0.0-1.4); CREATININE 1.1 mg/dL (0.5-1.0); MAGNESIUM 1.9 mg/dL (1.6-2.3); POTASSIUM 4.4 mmol/l (3.5-5.1); TOTAL PROTEIN 8.6 g/dL (6.3-8.2)
[2020-10-20 10:27] LABS: TSH, 3RD GENERATION 15.7 uIU/mL (0.47 - 4.68)
[2020-10-20 10:42] LABS: URINE BILIRUBIN - DIPSTICK NEGATIVE (NEGATIVE); URINE BLOOD DIPSTICK NEGATIVE (NEGATIVE); URINE COLOR YELLOW; URINE GLUCOSE - DIPSTICK NEGATIVE (NEGATIVE); URINE KETONE NEGATIVE (NEGATIVE); URINE LEUK ESTERASE NEGATIVE (NEGATIVE); URINE PH 6.5 (4.5-8.0); URINE PROTEIN - DIPSTICK NEGATIVE (NEG-TRACE); URINE UROBILINOGEN - DIPSTICK 0.2 E.U./dL (0.2)
[2020-10-20 10:43] LABS: URINE NITRITE - DIPSTICK NEGATIVE (Negative)
[2020-10-20] MEDS ORDERED: FUROSEMIDE20 MG PO (13:00)
[2020-10-20] MEDS ORDERED: RANOLAZINE ER500 MG PO (13:01)
[2020-10-20 17:44] VITALS: BP 143/89
== END 2020-10-20 17:45 | disposition short-term general hospital (02) ==
LOC: ED 09:11
PROVIDERS: Emergency Medicine
DX: R07.9 Chest pain, unspecified (principal); R79.89 Other specified abnormal findings of blood chemistry; R00.0 Tachycardia, unspecified; I11.0 Hypertensive heart disease with heart failure; I50.9 Heart failure, unspecified; I25.10 Atherosclerotic heart disease of native coronary artery without angina pectoris; E78.5 Hyperlipidemia, unspecified; E03.9 Hypothyroidism, unspecified; I48.91 Unspecified atrial fibrillation; K21.9 Gastro-esophageal reflux disease without esophagitis; Z85.118 Personal history of other malignant neoplasm of bronchus and lung; Z92.21 Personal history of antineoplastic chemotherapy; Z92.3 Personal history of irradiation; Z95.5 Presence of coronary angioplasty implant and graft; Z95.1 Presence of aortocoronary bypass graft; Z95.2 Presence of prosthetic heart valve; Z95.0 Presence of cardiac pacemaker

== ENCOUNTER 2020-11-20 08:10 | Emergency (ER) | payer MEDICARE, BC ==
[~2020-11-20] VITALS: Ht 30.5 cm; Wt 65.0 kg
[~2020-11-20 08:10] MED LIST changes: +RANOLAZINE ER500 MG PO
[2020-11-20 08:43] LABS: HEMATOCRIT 30.5 % (37.0-47.0); HEMOGLOBIN 9.9 g/dl (12.0-16.0); IMMATURE GRANULOCYTES 0.2 % (0.0-5.0); MEAN CELL VOLUME 104.8 fL CALC (80.0-100.0); MEAN CORPUSCULAR HGB CONC 32.5 g/dL CAL (32.0-36.0); NEUT# 2.81 thou/uL (2.00-7.15); RED BLOOD COUNT 2.91 mill/uL (4.20-5.60); RED CELL DISTRI WIDTH 17.6 % (11.5-15.5)
[2020-11-20 09:00] LABS: ALBUMIN 3.5 g/dL (3.2-5.0); ALKALINE PHOSPHATASE 88 u/l (38-126); ANION GAP 15 (6-22 (CALC)); BILIRUBIN, TOTAL 0.9 mg/dL (0.0-1.4); BUN 17 mg/dL (8-23); BUN/CREATININE RATIO 17 (12-20 (CALC)); CARBON DIOXIDE 24 mmol/l (22-30); CHLORIDE 93 mmol/l (95-108); GFR 52 ML/MIN (>=60 (CALC)); GFR FOR AFR.AMER. > 60 ML/MIN (>=60 (CALC)); POTASSIUM 4.2 mmol/l (3.5-5.1); SGOT/AST 40 u/l (9-36); SODIUM 127 mmol/l (137-146)
[2020-11-20 10:12] LABS: INTERNATIONAL NORMALIZED RATIO 4.9 RATIO (0.7-1.3); PROTHROMBIN TIME 46.6 SECONDS (9.0-12.5)
[2020-11-20 10:48] VITALS: BP 148/92
== END 2020-11-20 10:50 | disposition short-term general hospital (02) ==
LOC: ED 08:10
PROVIDERS: Family Medicine
DX: I20.0 Unstable angina (principal); R79.1 Abnormal coagulation profile; T45.515A Adverse effect of anticoagulants, initial encounter; I10 Essential (primary) hypertension; I48.91 Unspecified atrial fibrillation; I25.2 Old myocardial infarction; Z95.1 Presence of aortocoronary bypass graft; Z95.5 Presence of coronary angioplasty implant and graft; Z95.3 Presence of xenogenic heart valve; Z95.0 Presence of cardiac pacemaker; K21.9 Gastro-esophageal reflux disease without esophagitis; Z79.01 Long term (current) use of anticoagulants; Z86.73 Personal history of transient ischemic attack (TIA), and cerebral infarction without residual deficits; Z85.118 Personal history of other malignant neoplasm of bronchus and lung; Z20.822 Contact with and (suspected) exposure to COVID-19
CPT/HCPCS: J1644

== ENCOUNTER 2020-11-27 14:09 | Observation (INO) | payer MEDICARE, BC ==
[~2020-11-27] VITALS: Ht 129.5 cm; Wt 70.0 kg
--- NOTE | 2020-11-27 14:12 | NUR ---
PATIENT TO ROOM VIA EMS AND PHYSICIAN NOTIFIED OF PATIENT STATUS
[2020-11-27 15:20] LABS: HEMATOCRIT 34.9 % (37.0-47.0); IMMATURE GRANULOCYTES 0.2 % (0.0-5.0); MEAN CELL VOLUME 107.7 fL CALC (80.0-100.0); MEAN CORPUSCULAR HGB CONC 31.5 g/dL CAL (32.0-36.0); NEUT# 3.38 thou/uL (2.00-7.15); RED BLOOD COUNT 3.24 mill/uL (4.20-5.60); RED CELL DISTRI WIDTH 17.9 % (11.5-15.5)
--- NOTE | 2020-11-27 15:28 | NUR ---
PT RETURNED FROM RADIOLOGY. NO APPARENT DISTRESS. IV SITE HEALTHY. DONNA. VSS.
[2020-11-27 15:32] LABS: ALBUMIN 3.8 g/dL (3.2-5.0); ALKALINE PHOSPHATASE 90 u/l (38-126); ANION GAP 15 (6-22 (CALC)); BILIRUBIN, TOTAL 1.2 mg/dL (0.0-1.4); BUN 26 mg/dL (8-23); BUN/CREATININE RATIO 24 (12-20 (CALC)); CARBON DIOXIDE 24 mmol/l (22-30); CHLORIDE 91 mmol/l (95-108); CREATININE 1.1 mg/dL (0.5-1.0); GFR 47 ML/MIN (>=60 (CALC)); GFR FOR AFR.AMER. 57 ML/MIN (>=60 (CALC)); POTASSIUM 4.2 mmol/l (3.5-5.1); SGOT/AST 35 u/l (9-36); SODIUM 125 mmol/l (137-146); TOTAL PROTEIN 8.6 g/dL (6.3-8.2)
[2020-11-27 15:44] LABS: MYOGLOBIN 80 ng/mL (0 - 62)
--- NOTE | 2020-11-27 17:00 | NUR ---
DISCUSSED CURRENT POC WITH PATIENT. PT VOICED UNDERSTANDING. PT FREQUENTLY FORGETFUL.
[2020-11-27 17:37] LABS: INTERNATIONAL NORMALIZED RATIO 4.4 RATIO (0.7-1.3); PROTHROMBIN TIME 42.1 SECONDS (9.0-12.5)
--- NOTE | 2020-11-27 18:05 | NUR ---
ADVISED OF WAIT TIME FOR ADMISSION DETERMININATION. PT VOICED UNDERSTANDING. REQUIRES FREQUENT REMINDERS PER HER NORM.
--- NOTE | 2020-11-27 19:06 | NUR ---
REPORT PROVIDED TO JOSE C VELA, ON MEDSURG ADVISED OF ALL EVENTS ATTACHMENTS AND MEDS.
--- NOTE | 2020-11-27 20:00 | NUR ---
PT TO MEDSURG VIA WC ACCOMPANIED BY STAFF IN STABLE CONDITION.
--- NOTE | 2020-11-27 20:45 | NUR ---
PT ARRIVED TO FLOOR AT 2033 WITH ER STAFF VIA STRETCHER IN STABLE CONDITION. ALERT AND ORIENTED X 3. ASSISTED SELF ONTO BED. DENIES PAIN. RESPIRATIONS EVEN AND UNLABORED ON ROOM AIR. INCONTINENT OF URINE; BRIEF REMOVED AND ASSISTED WITH HYGIENE. ORIENTED TO ROOM AND CALL LIGHT SYSTEM; BED ALARM APPLIED FOR SAFETY. CALL LIGHT WITHIN REACH.
[2020-11-28] VITALS: BP 148/83
--- NOTE | 2020-11-28 01:21 | NUR ---
PATIENT IS CURRENTLY RESTING WITH EYES CLOSED. RESPIRATIONS UNLABORED. IVF INFUSING ORDERED. BED IN LOW POSITION. CALL LIGHT WITHIN REACH.
--- NOTE | 2020-11-28 04:27 | NUR ---
PATIENT REFUSED 0400 VITALS, A.M. LAB DRAW, AND INCONTINENCE CHANGE. NO ACUTE DISTRESS OBSERVED.
[2020-11-28 07:07] VITALS: BP 160/86
--- NOTE | 2020-11-28 07:16 | NUR ---
PT IN BED UPON ENTERING ROOM. PT IS ALERT TO SELF. VITALS AND ASSESSMENT DONE. S1 AND S2 HEARD UPON ASCULTATION. LUNGS CLEAR BILATERALLY. SKIN WARM AND DRY. BOWELS ACTIVE IN ALL 4 QUADRANTS. PEDAL PULSES STRONG BILATERALLY. NO PAIN VERBALIZED. CALL LIGHT WITHIN REACH.
[2020-11-28] MEDS ORDERED: BRILINTA60 MG PO (07:23)
[2020-11-28] MEDS ORDERED: NITROGLYCE0.4 MG/SPR PO (07:27)
[2020-11-28] MEDS ORDERED: ADVAIR DISK1 IN (07:27)
[2020-11-28 08:40] LABS: HEMATOCRIT 33.6 % (37.0-47.0); IMMATURE GRANULOCYTES 0.3 % (0.0-5.0); MEAN CELL VOLUME 103.7 fL CALC (80.0-100.0); MEAN CORPUSCULAR HGB CONC 32.7 g/dL CAL (32.0-36.0); NEUT# 2.26 thou/uL (2.00-7.15); RED BLOOD COUNT 3.24 mill/uL (4.20-5.60); RED CELL DISTRI WIDTH 17.6 % (11.5-15.5)
[2020-11-28 09:00] LABS: INTERNATIONAL NORMALIZED RATIO 3.9 RATIO (0.7-1.3); PROTHROMBIN TIME 37.1 SECONDS (9.0-12.5)
[2020-11-28 09:02] LABS: ANION GAP 13 (6-22 (CALC)); BUN 19 mg/dL (8-23); BUN/CREATININE RATIO 23 (12-20 (CALC)); CARBON DIOXIDE 23 mmol/l (22-30); CHLORIDE 97 mmol/l (95-108); CREATININE 0.8 mg/dL (0.5-1.0); GFR > 60 ML/MIN (>=60 (CALC)); GFR FOR AFR.AMER. > 60 ML/MIN (>=60 (CALC)); POTASSIUM 3.9 mmol/l (3.5-5.1); SODIUM 129 mmol/l (137-146)
--- NOTE | 2020-11-28 09:40 | NUR ---
PT KEEPS HAVING A BLOODY NOSE.
[2020-11-28 10:10] VITALS: BP 147/88
--- NOTE | 2020-11-28 12:00 | NUR ---
PT SLEEPING. NO DISTRESS NOTED. CALL LIGHT WITHIN REACH.
--- NOTE | 2020-11-28 15:00 | NUR ---
MIKEY ASKED PT 3 TIMES IF SHE HAS HAD THE PNEUMONIA VACCINE RECENTLY AND SHE HAS SAID YES ALL THREE TIMES.
--- NOTE | 2020-11-28 15:13 | NUR ---
PTIN BED. NO DISTRESS OR PAIN NOTED. CALL LIGHT WITHIN REACH.
[2020-11-28 15:15] VITALS: BP 129/78
[2020-11-28 19:00] VITALS: BP 136/80
--- NOTE | 2020-11-28 21:02 | NUR ---
PT MEDICATED ORDERS PROVIDE AND ASSESSMENT COMPLETED AT THIS TIME. ASSISTED PT UP TO BSC AND BACK TO THE BED. SHE WAS VERY UNSTEADY AND WEAK UPON AMBULATION. PT ASKED TO SIT FOR AWHILE IN ATTEMPTS TO HAVE BM, STATING SHE HAS BEEN CONSTIPATED.
--- NOTE | 2020-11-28 21:15 | NUR ---
PT ASSISTED BACK TO THE BED. MODERATE AMOUNT OF VERY HARD DARK STOOL OUTPUT VISUALIZED AT THIS TIME.
--- NOTE | 2020-11-29 00:25 | NUR ---
ASSISTED PT TO BSC AND BACK TO BED. DENIES ANY OTHER NEEDS.
[2020-11-29 00:32] VITALS: BP 158/90
--- NOTE | 2020-11-29 03:45 | NUR ---
PT SLEEPING, NO S/O DISTRESS NOTED. CALL LIGHT AT SIDE.
[2020-11-29 04:18] VITALS: BP 151/89
[2020-11-29 05:54] LABS: INTERNATIONAL NORMALIZED RATIO 3.4 RATIO (0.7-1.3); PROTHROMBIN TIME 33.3 SECONDS (9.0-12.5)
--- NOTE | 2020-11-29 07:10 | NUR ---
REPORT RECEIVED FROM JOSE C HERNANDEZ
[2020-11-29 08:50] VITALS: BP 155/79
--- NOTE | 2020-11-29 08:50 | NUR ---
PT RESTING IN SEMI FOWLERS POSITION,A&O X3;VS OBTAINED AND ASSESSMENT COMPLETED;PT DENIES ANY CURRENT PAIN OR DISCOMFORTS,PAIN SCALE AND REPORTING EDUCATED;RESPIRATIONS EVEN AND UNLABORED ON RA,CLEAR LUNG SOUNDS;ABDOMEN SOFT ON PALPATION AND ACTIVE IN ALL 4 QUADRANTS;WEAK PEDAL PULSES;SKIN INTACT;TELE MONITORING IN PLACE;EMS #20G TO LH INFUSING NS @ 80ML/HR,SITE APPEARS HEALTHY;PT DENIES ANY ADDITIONAL NEEDS AND IS ENCOURAGED TO CALL FOR ASSISTANNCE IF NEEDED;FALL PRECAUTIONS IN PLACE WITH BED IN THE LOWEST POSITION AND CALL LIGHT IN REACH;WILL CONTINUE TO MONITOR
[2020-11-29 09:56] LABS: URINE BILIRUBIN - DIPSTICK NEGATIVE (NEGATIVE); URINE BLOOD DIPSTICK NEGATIVE (NEGATIVE); URINE COLOR YELLOW; URINE GLUCOSE - DIPSTICK NEGATIVE (NEGATIVE); URINE KETONE NEGATIVE (NEGATIVE); URINE LEUK ESTERASE NEGATIVE (NEGATIVE); URINE PROTEIN - DIPSTICK NEGATIVE (NEG-TRACE); URINE UROBILINOGEN - DIPSTICK 0.2 E.U./dL (0.2)
[2020-11-29 09:58] LABS: URINE NITRITE - DIPSTICK NEGATIVE (Negative)
[2020-11-29 11:11] VITALS: BP 146/83
--- NOTE | 2020-11-29 11:45 | NUR ---
PT RESTING IN SEMI FOWLERS POSITION;RESPIRATIONS EVEN AND UNLABORED ON RA;PT DENIES ANY CURRENT PAIN OR NEEDS;TELE MONITORING IN PLACE;IV SITE PATENT INFUSING NS PER ORDER;ALL SAFETY PRECAUTIONS REMAIN IN PLACE WITH BED IN THE LOWEST POSITION AND CALL LIGHT IN REACH;WILL CONTINUE TO MONITOR
--- NOTE | 2020-11-29 12:25 | NUR ---
AT BEDSIDE DISCUSSING POC.
[2020-11-29 15:00] VITALS: BP 142/80
--- NOTE | 2020-11-29 15:35 | NUR ---
PT RESTING IN SEMI FOWLERS POSITION;RESPIRATIONS EVEN AND UNLABORED ON RA;PT DENIES ANY CURRENT PAIN OR DISCOMFORTS;TELE MONITORING IN PLACE;IV SITE PATENT TO LH INFUSING NS @ 80ML/HR;PT DENIES ANY ADDITIONAL NEEDS AND IS ENCOURAGED TO CALL FOR ASSISTANCE IF NEEDED;FALL PRECAUTIONS IN PLACE WITH CALL LIGHT IN REACH;WILL CONTINUE TO MONITOR
[2020-11-29 16:42] LABS: ANION GAP 16 (6-22 (CALC)); BUN 11 mg/dL (8-23); BUN/CREATININE RATIO 18 (12-20 (CALC)); CHLORIDE 101 mmol/l (95-108); CREATININE 0.6 mg/dL (0.5-1.0); GFR > 60 ML/MIN (>=60 (CALC)); GFR FOR AFR.AMER. > 60 ML/MIN (>=60 (CALC)); POTASSIUM 4.1 mmol/l (3.5-5.1); SODIUM 131 mmol/l (137-146)
[2020-11-29 16:54] LABS: CARBON DIOXIDE 18 mmol/l (22-30)
--- NOTE | 2020-11-29 17:13 | NUR ---
CALL PLACED TO PT GRANDSON (WAQAS), VOICEMAIL LEFT FOR DISCHARGE HOME.AWAITING CALL BACK FROM FAMILY.
--- NOTE | 2020-11-29 17:39 | NUR ---
SPOKE WITH VIC, PT DAUGHTER. PATIENTS GRANDDAUGHTER (ALICJA) TO UNDER GROUND MINER PT FOR D/C HOME.
--- NOTE | 2020-11-29 17:50 | NUR ---
ALL DISCHARGE INSTRUCTIONS PROVIDED AT THIS TIME;NO NEW MEDICATIONS PROVIDED;PT ENCOURAGED TO F/U WITH PCP IN THE NEXT WEEK AND VERBALIZES UNDERSTANDING;IV SITE REMOVED WITH CATHETER INTACT AND TELE D/C AT THIS TIME;WHEELCHAIR TO BE PROVIDED FOR D/C HOME;GRAND DAUGHTER TO TRANSPORT PT HOME;WILL CONTINUE TO MONITOR
--- NOTE | 2020-11-29 18:18 | NUR ---
Discharge instructions given. Patient verbalizes understanding of same. Discharged in stable condition via Wheelchair to Home with family. All belongings sent with pt. PT TRANSPORTED TO [facility] IN STABLE CONDITION VIA ACCOMPANIED BY ELECTRIC SIGN WIRER FOR TRANSPORT HOME.ALL BELONGINGS LEFT WITH PT.FAMILY TO TRANSPORT PT HOME.
== END 2020-11-29 18:18 | disposition home or self-care (01) ==
LOC: ED 14:09 → ED-I 17:54 → ED 18:06 → MS2 18:07
PROVIDERS: Emergency Medicine; ADMIT Internal Medicine; ATTEND Internal Medicine
DX: E87.1 Hypo-osmolality and hyponatremia (principal); E86.0 Dehydration; I11.0 Hypertensive heart disease with heart failure; I50.9 Heart failure, unspecified; I48.91 Unspecified atrial fibrillation; I25.10 Atherosclerotic heart disease of native coronary artery without angina pectoris; K21.9 Gastro-esophageal reflux disease without esophagitis; E78.5 Hyperlipidemia, unspecified; E03.9 Hypothyroidism, unspecified; M19.90 Unspecified osteoarthritis, unspecified site; I25.2 Old myocardial infarction; R79.1 Abnormal coagulation profile; T45.515A Adverse effect of anticoagulants, initial encounter; Z79.01 Long term (current) use of anticoagulants; Z95.1 Presence of aortocoronary bypass graft; Z85.118 Personal history of other malignant neoplasm of bronchus and lung; Z92.3 Personal history of irradiation; Z92.21 Personal history of antineoplastic chemotherapy; Z95.5 Presence of coronary angioplasty implant and graft; Z95.3 Presence of xenogenic heart valve; Z95.0 Presence of cardiac pacemaker; Z86.73 Personal history of transient ischemic attack (TIA), and cerebral infarction without residual deficits; Z20.822 Contact with and (suspected) exposure to COVID-19
CPT/HCPCS: G0378

== ENCOUNTER 2020-12-12 16:23 | Emergency (ER) | payer MEDICARE, BC ==
[~2020-12-12] VITALS: Ht 129.5 cm; Wt 60.0 kg
[~2020-12-12 16:23] MED LIST changes: +ADVAIR DISK1 IN; +BRILINTA60 MG PO; +NITROGLYCE0.4 MG/SPR PO
[2020-12-12 17:05] LABS: HEMATOCRIT 35.1 % (37.0-47.0); HEMOGLOBIN 11.2 g/dl (12.0-16.0); IMMATURE GRANULOCYTES 0.2 % (0.0-5.0); MEAN CELL VOLUME 106.7 fL CALC (80.0-100.0); MEAN CORPUSCULAR HGB CONC 31.9 g/dL CAL (32.0-36.0); NEUT# 4.17 thou/uL (2.00-7.15); RED BLOOD COUNT 3.29 mill/uL (4.20-5.60); RED CELL DISTRI WIDTH 18.2 % (11.5-15.5)
[2020-12-12 17:19] LABS: ALBUMIN 4.3 g/dL (3.2-5.0); ALKALINE PHOSPHATASE 98 u/l (38-126); BILIRUBIN, TOTAL 0.9 mg/dL (0.0-1.4); BUN 15 mg/dL (8-23); BUN/CREATININE RATIO 16 (12-20 (CALC)); CHLORIDE 93 mmol/l (95-108); GFR 52 ML/MIN (>=60 (CALC)); GFR FOR AFR.AMER. > 60 ML/MIN (>=60 (CALC)); POTASSIUM 3.9 mmol/l (3.5-5.1); SGOT/AST 39 u/l (9-36); SODIUM 133 mmol/l (137-146); TOTAL PROTEIN 9.4 g/dL (6.3-8.2)
[2020-12-12 17:21] LABS: ANION GAP 14 (6-22 (CALC)); CARBON DIOXIDE 30 mmol/l (22-30)
[2020-12-12] MEDS ORDERED: OMNICEF300 M1 PO (18:11)
[2020-12-12] MEDS ORDERED: ZITHROMAX500 MG PO (18:11)
[2020-12-12 21:00] VITALS: BP 128/79
== END 2020-12-12 21:20 | disposition home or self-care (01) ==
LOC: ED 16:23
DX: J18.9 Pneumonia, unspecified organism (principal); F03.90 Unspecified dementia, unspecified severity, without behavioral disturbance, psychotic disturbance, mood disturbance, and anxiety; I25.10 Atherosclerotic heart disease of native coronary artery without angina pectoris; I48.91 Unspecified atrial fibrillation; I25.2 Old myocardial infarction; K21.9 Gastro-esophageal reflux disease without esophagitis; Z95.0 Presence of cardiac pacemaker; Z86.73 Personal history of transient ischemic attack (TIA), and cerebral infarction without residual deficits; Z85.118 Personal history of other malignant neoplasm of bronchus and lung; Z20.822 Contact with and (suspected) exposure to COVID-19